=== PATIENT | female | born 1990 | race Caucasian/White ===

== ENCOUNTER 2019-02-28 14:11 | Inpatient (IN) ==
[2019-02-28 14:55] LABS: Basophils % 0.2 %; Hematocrit 38.8 % (35.3-44.9); Hemoglobin 12.6 g/dL (11.5-15.4); Immature Granulocytes % 0.4 % (0-4); Lymphocytes # 0.5 K/mcL (0.6-4.6); Lymphocytes % 4.7 %; Mean Corpuscular HGB Conc 32.5 g/dL (31.6-35.5); Mean Corpuscular Hemoglobin 30.3 pg (28.0-33.3); Mean Corpuscular Volume 93.3 fL (83.0-100.0); Mean Platelet Volume 9.3 fL (9.4-12.4); Monocytes # 0.3 K/mcL (0.0-1.3); Monocytes % 2.9 %; Neutrophils # 10.3 K/mcL (1.6-8.9); Platelet Count 198 K/mcL (140-400); Red Blood Count 4.16 M/mcL (3.82-4.97); Red Cell Distribution Width 12.8 % (11.5-14.5); Segmented Neutrophils % 91.8 %; White Blood Count 11.2 K/mcL (4.3-11.1)
[2019-02-28 15:02] LABS: INR 1.6; Prothrombin Time 18.2 Seconds (9.4-12.1)
[2019-02-28] MEDS ORDERED: *HR* FentaNYL (PF) 100 MCG/2 ML VIAL IVP ONE ×2 (15:08→17:19)
[2019-02-28] MEDS ORDERED: Ondansetron 4 MG/2 ML VIAL IM ONE (15:08)
[2019-02-28 15:20] LABS: BUN/Creatinine Ratio 22 (6-26); Blood Urea Nitrogen 12 mg/dL (6-20); Calcium 9.6 mg/dL (8.6-10.3); Carbon Dioxide 26 mEq/L (23-29); Chloride 104 mEq/L (98-107); Glucose 106 mg/dL (70-105); Osmolality,Calculated 286 (280-300); Potassium 3.5 mEq/L (3.5-5.1); Sodium 138 mEq/L (136-145); eGFR For African Americans > 60 (> 60); eGFR For Non-African Americans > 60 (> 60)
[2019-02-28 15:22] LABS: Troponin I < 0.03 ng/mL (< 0.04)
[2019-02-28] MEDS ORDERED: Isovue-370 500 ML BOTTLE IVP ONE (15:27)
--- NOTE | 2019-02-28 15:53 | Emergency Department Note ---
Disposition Clinical Impression: Abdominal pain Qualifiers: Abdominal location: generalized Qualified Code(s): R10.84 - Generalized abdominal pain Disposition: Admitted As Inpatient Time of Disposition: 19:00 General Adult HPI - General Chief complaint: ED Abdominal Pain Stated complaint: ABD PAIN Time Seen by Provider: 02/28/19 14:24 Source: patient, family Limitations: no limitations - History of Present Illness HPI Narrative: Ms. Moore is a 28-year-old female presented to ED complaining of diffuse abdominal pain. She reports this morning she started having bouts of nonbloody emesis. The abdominal pain is diffuse and not localized to any specific quadrants. Reports the pain does worsen anytime she sits down at any pressure while urinating. Also complaining of chest pain that worsens with deep inspiration. Denies any radiation of chest wall pain to her back or arms. Reports she has never had any pain like this before. She does report frequent travel to [place] with 3 hour trips reports is not unusual for her. Denies any previous history of pulmonary embolism. Denies tobacco use. Denies any current use of contraceptives. Denies fever, loss of consciousness, lower extremity edema or pain. Pain Scale: 10 - Related Data Previous Rx's Medication Instructions Recorded Doxycycline 100 mg PO BID #28 capsule 03/01/19 Ibuprofen [Motrin] 600 mg PO Q6HR PRN #40 tab 03/01/19 OxyCODONE/APAP 5/325 [Percocet 1 each PO Q6HR PRN 7 Days #28 03/01/19 5/325 MG] tablet metroNIDAZOLE [Flagyl] 500 mg PO BID #28 tablet 03/01/19 Allergies Allergy/AdvReac Type Severity Reaction Status Date / Time No Known Allergies Allergy Verified 02/28/19 14:17 Constitutional: Denies: fever, chills, weakness Eyes: Denies: eye pain, eye discharge ENT ED: Denies: ear pain, congestion, dysphagia Cardiovascular: Reports: chest pain. Denies: palpitations, dyspnea on exertion Respiratory: Denies: cough, dyspnea, wheezes Gastrointestinal: Reports: abdominal pain, nausea, vomiting Genitourinary: Denies: urgency, dysuria, frequency Musculoskeletal: Denies: back pain Integumentary: Denies: rash, abrasion, lesions Neurological: Denies: headache, weakness Past Medical History - Past Medical History Medical history: Reports: kidney stones Surgical history: Reports: no surgical history Psychiatric history: Reports: anxiety - Social History Smoking Status: Never smoker Smokeless Tobacco Status: No Alcohol use: Reports: none Drug use: Reports: none Physical Exam - General Limitations: no limitations General appearance: alert, in no apparent distress - Head Head exam: atraumatic, normocephalic - Eye Eye exam: Present: normal appearance, EOMI. Absent: scleral icterus - ENT ENT exam: normal exam, normal oropharynx, mucous membranes moist - Neck Neck exam: Present: normal inspection, full ROM, trachea midline - Chest Chest inspection: Present: normal inspection, symmetric chest wall rise. Absent: tenderness - Respiratory Respiratory exam: Present: normal lung sounds bilaterally. Absent: respiratory distress, wheezes - Cardiovascular Cardiovascular exam: Present: normal rhythm, tachycardia, +S1 - Abdominal Exam Abdominal exam: Present: soft, tenderness (Diffuse), guarding. Absent: distention, rigidity, Rovsing's sign - Extremities Exam Extremities exam: Present: normal inspection, full ROM. Absent: tenderness, pedal edema - Neurological Exam Neurological exam: Present: alert, oriented X3 - Psychiatric Psychiatric exam: Present: normal affect, normal mood - Skin Skin exam: Present: warm, dry, intact Course Vital Signs Temperature 99.8 F H 02/28/19 14:17 Pulse Rate 96 02/28/19 14:17 Respiratory Rate 20 02/28/19 14:17 Blood Pressure 109/73 02/28/19 14:17 O2 Sat by Pulse Oximetry 99 02/28/19 14:17 Temperature 98.7 F 02/28/19 22:16 Pulse Rate 85 02/28/19 22:16 Respiratory Rate 24 02/28/19 22:16 Blood Pressure 108/63 02/28/19 22:16 O2 Sat by Pulse Oximetry 96 02/28/19 22:16 Oxygen Delivery Oxygen Delivery Room Air Medical Decision Making - [facility] Narrative Medical decision making narrative: *Capo is a 28-year-old female presents ED complaining of nausea diffuse abdominal pain and pleuritic chest pain. She reports this symptom started today. She has had a few episodes of emesis since the presentation of the pain. She never had any pain with this before. She is denying any history of pulmonary embolism or DVTs. Her d-dimer was elevated at 2853 today. CTA pending. CTA did not show any acute pulmonary embolism. CT abdomen pelvis shows free fluid as well as engorgement of uterine vessels. Additionally there is large cystic lesion noted. Transvaginal ultrasound pending. Urine is negative. Consulted PUBLIC SPEAKING TEACHER spoke with nurse practitioner for PUBLIC SPEAKING TEACHER and they will admit her. - Medical Records Medical records reviewed: Yes I reviewed the patient's medical records. - Lab Data Lab results reviewed: Yes I reviewed the patient's lab results. Result diagrams: 03/01/19 07:02 02/28/19 14:44 Lab Results 02/28/19 02/28/19 02/28/19 Range/Units 14:44 14:44 14:44 WBC 11.2 H (4.3-11.1) K/mcL RBC 4.16 (3.82-4.97) M/mcL Hgb 12.6 (11.5-15.4) g/dL Hct 38.8 (35.3-44.9) % MCV 93.3 (83.0-100.0) fL MCH 30.3 (28.0-33.3) pg MCHC 32.5 (31.6-35.5) g/dL RDW 12.8 (11.5-14.5) % Plt Count 198 (140-400) K/mcL MPV 9.3 L (9.4-12.4) fL Immature Gran % 0.4 (0-4) % Seg Neutrophils % 91.8 % Lymphocytes % 4.7 % Monocytes % 2.9 % Eosinophils % 0.0 % Basophils % 0.2 % Neutrophils # 10.3 H (1.6-8.9) K/mcL Lymphocytes # 0.5 L (0.6-4.6) K/mcL Monocytes # 0.3 (0.0-1.3) K/mcL Eosinophils # 0.0 (0.0-0.6) K/mcL Basophils # 0.0 (0.0-0.2) K/mcL PT 18.2 H (9.4-12.1) Seconds INR 1.6 D-Dimer 2853 H (0-500) ng/mLFEU Sodium 138 (136-145) mEq/L Potassium 3.5 (3.5-5.1) mEq/L Chloride 104 (98-107) mEq/L Carbon Dioxide 26 (23-29) mEq/L BUN 12 (6-20) mg/dL Creatinine 0.55 L (0.60-1.20) mg/dL Est GFR ( Amer) > 60 (> 60) Est GFR (Non-Af Amer) > 60 (> 60) BUN/Creatinine Ratio 22 (6-26) Glucose 106 H (70-105) mg/dL Calculated Osmolality 286 (280-300) Calcium 9.6 (8.6-10.3) mg/dL Troponin I < 0.03 (< 0.04) ng/mL Urine Color (Yellow) Urine Clarity (Clear) Urine pH (5.0-8.0) pH Units Ur Specific [place] (1.010-1.025) Urine Protein (Neg-Trace) mg/dL Urine Glucose (UA) (Normal) mg/dL Urine Ketones (Negative) mg/dL Urine Blood (Negative) Urine Nitrite (Negative) Urine Bilirubin (Negative) Urine Urobilinogen (Normal) mg/dL Ur Leukocyte Esterase (Negative) Ur Culture Indicated? (NO) Urine Test (Negative) Blood Type Antibody Screen Crossmatch 02/28/19 02/28/19 02/28/19 Range/Units 17:01 17:01 17:56 WBC (4.3-11.1) K/mcL RBC (3.82-4.97) M/mcL Hgb (11.5-15.4) g/dL Hct (35.3-44.9) % MCV (83.0-100.0) fL MCH (28.0-33.3) pg MCHC (31.6-35.5) g/dL RDW (11.5-14.5) % Plt Count (140-400) K/mcL MPV (9.4-12.4) fL Immature Gran % (0-4) % Seg Neutrophils % % Lymphocytes % % Monocytes % % Eosinophils % % Basophils % % Neutrophils # (1.6-8.9) K/mcL Lymphocytes # (0.6-4.6) K/mcL Monocytes # (0.0-1.3) K/mcL Eosinophils # (0.0-0.6) K/mcL Basophils # (0.0-0.2) K/mcL PT (9.4-12.1) Seconds INR D-Dimer (0-500) ng/mLFEU Sodium (136-145) mEq/L Potassium (3.5-5.1) mEq/L Chloride (98-107) mEq/L Carbon Dioxide (23-29) mEq/L BUN (6-20) mg/dL Creatinine (0.60-1.20) mg/dL Est GFR ( Amer) (> 60) Est GFR (Non-Af Amer) (> 60) BUN/Creatinine Ratio (6-26) Glucose (70-105) mg/dL Calculated Osmolality (280-300) Calcium (8.6-10.3) mg/dL Troponin I (< 0.04) ng/mL Urine Color Yellow (Yellow) Urine Clarity Clear (Clear) Urine pH 6.0 (5.0-8.0) pH Units Ur Specific [place] >= 1.099 H (1.010-1.025) Urine Protein Negative (Neg-Trace) mg/dL Urine Glucose (UA) Normal (Normal) mg/dL Urine Ketones Trace H (Negative) mg/dL Urine Blood Negative (Negative) Urine Nitrite Negative (Negative) Urine Bilirubin Negative (Negative) Urine Urobilinogen Normal (Normal) mg/dL Ur Leukocyte Esterase Negative (Negative) Ur Culture Indicated? NO (NO) Urine Test Negative (Negative) Blood Type O POSITIVE Antibody Screen NEGATIVE Crossmatch See Detail 02/28/19 Range/Units 17:56 WBC 10.0 (4.3-11.1) K/mcL RBC 3.88 (3.82-4.97) M/mcL Hgb 11.7 (11.5-15.4) g/dL Hct 36.4 (35.3-44.9) % MCV 93.8 (83.0-100.0) fL MCH 30.2 (28.0-33.3) pg MCHC 32.1 (31.6-35.5) g/dL RDW 13.0 (11.5-14.5) % Plt Count 179 (140-400) K/mcL MPV 10.1 (9.4-12.4) fL Immature Gran % 0.5 (0-4) % Seg Neutrophils % 90.1 % Lymphocytes % 5.6 % Monocytes % 3.6 % Eosinophils % 0.0 % Basophils % 0.2 % Neutrophils # 9.0 H (1.6-8.9) K/mcL Lymphocytes # 0.6 (0.6-4.6) K/mcL Monocytes # 0.4 (0.0-1.3) K/mcL Eosinophils # 0.0 (0.0-0.6) K/mcL Basophils # 0.0 (0.0-0.2) K/mcL PT (9.4-12.1) Seconds INR D-Dimer (0-500) ng/mLFEU Sodium (136-145) mEq/L Potassium (3.5-5.1) mEq/L Chloride (98-107) mEq/L Carbon Dioxide (23-29) mEq/L BUN (6-20) mg/dL Creatinine (0.60-1.20) mg/dL Est GFR ( Amer) (> 60) Est GFR (Non-Af Amer) (> 60) BUN/Creatinine Ratio (6-26) Glucose (70-105) mg/dL Calculated Osmolality (280-300) Calcium (8.6-10.3) mg/dL Troponin I (< 0.04) ng/mL Urine Color (Yellow) Urine Clarity (Clear) Urine pH (5.0-8.0) pH Units Ur Specific [place] (1.010-1.025) Urine Protein (Neg-Trace) mg/dL Urine Glucose (UA) (Normal) mg/dL Urine Ketones (Negative) mg/dL Urine Blood (Negative) Urine Nitrite (Negative) Urine Bilirubin (Negative) Urine Urobilinogen (Normal) mg/dL Ur Leukocyte Esterase (Negative) Ur Culture Indicated? (NO) Urine Test (Negative) Blood Type Antibody Screen Crossmatch - Radiology Data Radiology results reviewed: Yes I reviewed the patient's radiology results. Attestation Statement - Attestation Attestation: I, Reyes Salazar, examined this patient and my medical decision-making was reviewed with the NATURAL RESOURCE OFFICER/PA/Advanced Practice Nurse/Resident Physician. I agree with the documented findings, disposition and treatment plan as described except to the extent set forth below. 28-year-old female presents emergency Department with concerns of severe abdominal pain. Patient states symptoms started acutely and progressed over the past few hours prior to arrival. Patient reports associated nausea with the pain. She does have a fever in the emergency department. She denies chest pain or shortness breath or palpitations. No recent trauma. She reports vaginal bleeding believes that she is on her menstrual cycle. Urine was negative. CT of the pelvis shows large amount of free fluid within the pelvis which is likely blood. We called the PUBLIC SPEAKING TEACHER physician to evaluate at bedside. Dr. Lopez evaluated and will take the patient to the OR.
[2019-02-28] MEDS ORDERED: 0.9 % Sodium Chloride 1,000 ML IVC ONE (17:19)
[2019-02-28] MEDS ORDERED: Acetaminophen 325 MG TABLET PO ONE (17:40)
[2019-02-28 17:44] LABS: Bilirubin,Urine Negative (Negative); Blood,Urine Negative (Negative); Clarity,Urine Clear (Clear); Color,Urine Yellow (Yellow); Glucose,Urine (UA) Normal (Normal); Ketones,Urine Trace mg/dL (Negative); Leukocyte Esterase,Urine Negative (Negative); Nitrite,Urine Negative (Negative); Protein,Urine Negative (Neg-Trace); Urobilinogen,Urine Normal (Normal)
[2019-02-28 17:45] LABS: Specific Gravity,Urine >= 1.099 (1.010-1.025)
[2019-02-28 18:29] LABS: Basophils % 0.2 %; Hematocrit 36.4 % (35.3-44.9); Hemoglobin 11.7 g/dL (11.5-15.4); Immature Granulocytes % 0.5 % (0-4); Lymphocytes # 0.6 K/mcL (0.6-4.6); Lymphocytes % 5.6 %; Mean Corpuscular HGB Conc 32.1 g/dL (31.6-35.5); Mean Corpuscular Hemoglobin 30.2 pg (28.0-33.3); Mean Corpuscular Volume 93.8 fL (83.0-100.0); Mean Platelet Volume 10.1 fL (9.4-12.4); Monocytes # 0.4 K/mcL (0.0-1.3); Monocytes % 3.6 %; Platelet Count 179 K/mcL (140-400); Red Blood Count 3.88 M/mcL (3.82-4.97); Segmented Neutrophils % 90.1 %
[2019-02-28] MEDS ORDERED: Doxycycline 100 MG in 0.9 % Sodium Chloride Mini Bag 100 ML IVPB ONE (19:06)
[2019-02-28] MEDS ORDERED: cefTRIAXone 1,000 MG in 0.9 % Sodium Chloride Mini Bag 100 ML IVPB ONE (19:06)
[2019-02-28] MEDS ORDERED: MetroNIDAZOLE 500 MG/100 ML 500 MG/100 ML BAG IVPB ONE ×2 (19:07→20:11)
--- NOTE | 2019-02-28 19:11 | OB/GYN History & Physical ---
Date of Encounter: 02/28/19 Time of Encounter: 19:08 Assessment and Plan (1) Pelvic pain Current visit: Yes Status: Acute 28-year-old female with severe pelvic pain and acute abdominal signs with hematocrit peritoneum was normal hemoglobin at this point however she has been hypertensive and somewhat tachycardic. She has definite peritoneal signs with exquisite tenderness. She does have a large complex right ovarian cyst and hematocrit peritoneum and does have a history of a large complex cyst back in 2016 on the same side. She is low risk for infection and that she does have a mild elevation of fever minimal elevation in white count I think infection with tubo-ovarian abscesses unlikely at this point. Did advise patient that given her pain and hematocrit peritoneum options for either expectant management versus surgical and patient states quite uncomfortable and desires to proceed with surgery. I did advise patient that if I was highly concerned over tubo- ovarian abscess it would possibly be best to hold down infection with antibioti cs for 48-72 hours prior to surgery. Patient strongly desires to proceed with surgery now on I did advise given the concern over tubo-ovarian abscess will proceed with surgery. Patient's questions were answered and she signed appropriate consent. We will proceed with laparoscopic right ovarian cystectomy possible oophorectomy (2) Complex cyst of right ovary Current visit: Yes Status: Acute (3) Hemoperitoneum (nontraumatic) Current visit: Yes Status: Acute History of Present Illness Chief complaint: Severe pelvic and abdominal pain HPI: Ms. Moore is a 28 year old female 2 para 2 female last menstrual period 3 days Presents after onset of right lower quadrant pelvic pain yesterday and became quite severe this morning. The pain was doubling her over also was now having pain and pressure and chest she has nausea and no emesis. She denies abnormal discharge. She denies bowel or bladder problems she has no fevers or chills. Of note she does have a history of hemorrhoids 5 cm right ovarian cyst noted on ultrasound 2016. She has had occasional dyspareunia on the right side since then but has not had further evaluation or workup. She is in a stable monogamous relationship and has no history of sexually transmitted infections. She has history of 2 prior sections. An emergency room patient did have CAT scan showing 7.6 cm right ovarian cyst with significant amount of blood in abdominal cavity tracking up underneath her liver. The cyst on the right side is somewhat complex. She also has mildly enlarged spleen but no other significant findings. She did have a negative CTA to rule out pulmonary embolism given her chest discomfort. Did have one elevation in temperature and also had minimally elevated white count 11.6. Past Med Surg Social Fam HX - Past Medical History Source: patient Medical history: kidney stones Additional medical history: PCOS Psychiatric history: anxiety - Past Surgical History Surgical History: no surgical history Additional surgical history: Kidney stones removed - Social History Smoking Status: Never smoker Smokeless Tobacco Status: No Alcohol use: none Drug use: none Obstetrical History - Pregnancies : 2 Para: 2 Medications and Allergies No Known Home Drugs 02/28/19 [History] Allergy/AdvReac Type Severity Reaction Status Date / Time No Known Allergies Allergy Verified 02/28/19 14:17 Exam - Vital Signs Vital signs: Initial Vital Signs Temp Pulse Resp BP Pulse Ox 99.8 F H 96 20 109/73 99 02/28/19 14:17 02/28/19 14:17 02/28/19 14:17 02/28/19 14:17 02/28/19 14:17 - Constitutional Constitutional: well developed, moderate distress - HEENT HEENT: EOMI, PERRL - Neck Neck exam: full ROM - Lungs Respiratory exam: CTAB - Cardiovascular Cardiovascular exam: RRR - Abdomen Abdomen: Present: bowel sounds hypoactive, diffuse tenderness - Extremities Extremities exam: full ROM Results Result Diagrams: 02/28/19 17:56 02/28/19 14:44 Abnormal lab results WBC 11.2 K/mcL (4.3-11.1) H 02/28/19 14:44 MPV 9.3 fL (9.4-12.4) L 02/28/19 14:44 9.0 K/mcL (1.6-8.9) H 02/28/19 17:56 0.5 K/mcL (0.6-4.6) L 02/28/19 14:44 PT 18.2 Seconds (9.4-12.1) H 02/28/19 14:44 2853 ng/mLFEU (0-500) H 02/28/19 14:44 0.55 mg/dL (0.60-1.20) L 02/28/19 14:44 Glucose 106 mg/dL (70-105) H 02/28/19 14:44 Ur Specific [place] >= 1.099 (1.010-1.025) H 02/28/19 17:01 Trace mg/dL (Negative) H 02/28/19 17:01 All other labs normal.
--- NOTE | 2019-02-28 19:37 | Anesthesia Evaluation PreOp ---
Date of Encounter: 02/28/19 Time of Encounter: 19:35 - Past History Planned Operation: Right Laproscopic Ovarian Cystectomy Cardiac History: Denies any Significant Hx Pulmonary History: Denies Any Significant HX BOAT WORKER History: Other Other Medical History: Denies Any Significant HX, Other (PCOS, anxiety) Anesthesia History: Past Anesthesia (renal stone, C/S) : No Test: Negative (02/28/19) Alcohol Use: none Drug use: none Medications and Allergies No Known Home Drugs 02/28/19 [History] Allergy/AdvReac Type Severity Reaction Status Date / Time No Known Allergies Allergy Verified 02/28/19 14:17 - Meds/Allergy Pre-op Review Medications Reviewed: Yes Allergies Reviewed: Yes Beta Blockers on Current Med List: No Anesthesia Results - Labs 02/28/19 17:56 02/28/19 14:44 Anesthesia Exam Vital Signs/O2 Sat, Most Current Temp Pulse Resp BP Pulse Ox 101.0 F H 107 16 113/61 96 02/28/19 18:30 02/28/19 18:30 02/28/19 18:30 02/28/19 18:30 02/28/19 18:30 NPO (# of Hours): > 8 hrs Pain Scale: 0 Pain Scale Used: Numeric (1 - 10) - HEENT Pupil (Motor): Pupils equal, EOMI Mallampati: I Teeth: Normal Oral Opening: Greater than 3 - BOAT WORKER LOC: Oriented BOAT WORKER Motor: Normal RUE, Normal LUE, Normal RLE, Normal LLE, Normal Face BOAT WORKER Sensory: Normal: RUE, LUE, RLE, LLE, Face - Cardiac Rhythm: Regular Murmur: None JVD: No Carotid Bruit: No - Pulmonary Breath Sounds: bilateral Clear Respiratory Effort: Symmetrical Anesthesia Assess/Plan ASA Score: 1, E Level of consciousness: Cooperative Anesthetic Plan: General Autologous Blood: Yes Monitoring Plan: Standard Monitors Recovery Plan: PACU
[2019-02-28] MEDS ORDERED: *HR* FentaNYL (PF) 100 MCG/2 ML VIAL ONE (19:43)
[2019-02-28] MEDS ORDERED: *HR* Propofol 200 MG/20 ML VIAL IVP ONE (19:43)
[2019-02-28] MEDS ORDERED: Lidocaine -MPF 2% 2 ML VIAL ONE (19:45)
[2019-02-28] MEDS ORDERED: Dexamethasone 4 MG/ML VIAL ONE (19:45)
[2019-02-28] MEDS ORDERED: Ondansetron 4 MG/2 ML VIAL ONE (19:45)
[2019-02-28] MEDS ORDERED: *HR* Rocuronium Bromide 50 MG/5 ML VIAL ONE (19:45)
[2019-02-28] MEDS ORDERED: *HR* Succinylcholine 200 MG/10 ML VIAL IVP ONE (19:45)
[2019-02-28] MEDS ORDERED: *HR* Labetalol 20 MG/4 ML SYRINGE IVP PRN (20:03)
[2019-02-28] MEDS ORDERED: Ondansetron 4 MG/2 ML VIAL IVP ONE (20:03)
[2019-02-28] MEDS ORDERED: *HR* OxyCODONE Immed Rel 5 MG TABLET PO PRN (20:03)
[2019-02-28] MEDS ORDERED: *HR* Promethazine 25 MG/ML VIAL IVP PRN (20:03)
[2019-02-28] MEDS ORDERED: *HR* HYDROmorphone (PF) 1 MG/ML SYRINGE IVP PRN (20:03)
[2019-02-28] MEDS ORDERED: Bupivacaine/EPI 1:200k 0.25%PF 10 ML VIAL INFILT ONE (20:11)
[2019-02-28] MEDS ORDERED: Neostigmine Methylsulfate 3 MG/3 ML SYRINGE ONE (21:31)
[2019-02-28] MEDS ORDERED: Ketorolac 30 MG/ML VIAL ONE (21:53)
--- NOTE | 2019-02-28 22:11 | Anesthesia Evaluation Post Op ---
Date of Encounter: 02/28/19 Time of Encounter: 22:10 - Vital Signs Vital Signs: Vital Signs/O2 Sat, Most Current Temp Pulse Resp BP Pulse Ox 98.4 F 80 24 108/58 94 02/28/19 21:46 02/28/19 22:06 02/28/19 22:06 02/28/19 22:06 02/28/19 22:06 - Lungs Lungs: Clear Ascult./Percussion - Airway Airway: Non-obstructed - Cardiovascular Regular Rate - Mental Status Mental Status: Alert & Oriented, Answers Appropriately - Pain Pain Scale: 0 Pain Scale used: Numeric (1 - 10) - Nausea Vomiting Nausea Vomiting: Not Present - Hydration Hydration: Ice chips, Has not voided - Discharge PostOp Status: Transfer Patient to floor
[2019-02-28] MEDS ORDERED: Naloxone 0.4 MG/ML INJ IVP PRN (22:14)
[2019-02-28] MEDS ORDERED: Ondansetron 4 MG/2 ML VIAL IVP PRN ×2 (22:14→22:54)
--- NOTE | 2019-02-28 22:15 | OB/GYN Procedure Note ---
Laparoscopy Procedure - Diagnosis Date of procedure: 02/28/19 Pre-op diagnosis: acute pelvic pain, ovarian cyst (7.4 cm complex right ovarian cyst), other (Possible tubo-ovarian abscess) Post-op diagnosis: same, pelvic adhesive disease, other (7 cm smooth-walled ovarian cyst, tubo-ovarian abscess) - Procedure Laparoscopy procedure: right ovarian cystectomy, lysis of pelvic adhesions Surgeon: Jerrod Martinez Was there an clinic assistant present: Yes General Assistant: Zaria Ball Anesthesia Type: General Estimated blood loss (cc): 320 Complications: none Specimens: ovarian cyst wall Findings: Laboratory changes within the pelvis with multiple adhesions between the omentum and the right lower quadrant and left lower quadrant. 7 cm smooth-walled right ovarian cyst with localized inflammation Disposition: PACU Narrative: 28-year-old female presents to emergency room with severe pelvic pain, 7 cm right ovarian cyst, hematoperitoneum peritoneum, fever. Patient with long history of 7 cm right ovarian cyst. Discussed with patient options as per history of present illness decision was made to proceed with laparoscopic right ovarian cystectomy possible oophorectomy. She was aware of operative risks and signed appropriate consent. Description procedure: Patient was taken operating room where general anesthesia was administered. She is prepped draped in usual sterile fashion bladder was drained of clear urine. Cervix is visualized and grasped with single-tooth tenaculum and acorn uterine manipulators placed in the cervix. Scalpel was used to make 5 mm incision below the umbilicus from a blunt trochars introduced at difficulty. 12 mm trochar was placed the midline just above symphysis pubis. Patient was placed in Trendelenburg position. Second 5 mm trochars placed in the right lower quadrant. Multiple adhesions were noted between the omentum and anterior abdominal wall these were thin stringy were taken down easily. She was between the bowel in the right ovary which was enlarged and cystic these adhesions were easily taken down. There are also adhesions from left adnexal intra-abdominal wall which easily taken down. Right ovary was lifted upwards out of the pelvis was then smooth-walled enlarged. This ovarian cyst was opened and drained of clear fluid. LigaSure was used to go across the cyst wall and the cyst was completely transected and the cyst was removed from the normal right ovary. There were adhesions between the right fallopian tube and right ovary. At this point thorough irrigation was performed approximately thousand cc of fluid and all the inflammatory debris which is on the uterus as well as both fallopian tubes and throughout the pelvis was irrigated out the best of my ability. Hemostasis was ensured. Pneumoperitoneum was released and trochars removed. 12 mm incision was closed with 0 Vicryl. Skin edges reapproximated with 4-0 Vicryl and skin glue. All sponge and instruments counts are correct patient was taken recovery in good condition.
[2019-02-28] MEDS: cefOXitin 2,000 MG in Water for inj. (sterile) 20 ML 20 ML IVP SCH (22:52)
[2019-02-28] MEDS ORDERED: *HR* Meperidine 25 MG/ML SYRINGE IVP PRN (22:55)
[2019-02-28] MEDS ORDERED: Promethazine 12.5 MG in 0.9 % Sodium Chloride 50 ML IVPB PRN (22:59)
[2019-03-01] MEDS: *HR* OxyCODONE/APAP 5/325 TABLET PO PRN ×4 (01:37→19:16)
[2019-03-01] MEDS: Ringers Solution, Lactated 1,000 ML IVC SCH ×3 (03:45→21:21)
[2019-03-01] MEDS: Doxycycline 100 MG in 0.9 % Sodium Chloride Mini Bag 100 ML IVPB SCH ×2 (05:24→17:51)
[2019-03-01] MEDS ORDERED: Ondansetron 4 MG/2 ML VIAL IVP PRN (06:00)
[2019-03-01 07:38] LABS: Basophils % 0.1 %; Hematocrit 32.6 % (35.3-44.9); Hemoglobin 10.6 g/dL (11.5-15.4); Immature Granulocytes % 0.5 % (0-4); Lymphocytes # 0.2 K/mcL (0.6-4.6); Lymphocytes % 2.2 %; Mean Corpuscular HGB Conc 32.5 g/dL (31.6-35.5); Mean Corpuscular Hemoglobin 30.2 pg (28.0-33.3); Mean Corpuscular Volume 92.9 fL (83.0-100.0); Mean Platelet Volume 9.8 fL (9.4-12.4); Monocytes # 0.3 K/mcL (0.0-1.3); Monocytes % 3.1 %; Neutrophils # 9.4 K/mcL (1.6-8.9); Platelet Count 168 K/mcL (140-400); Red Blood Count 3.51 M/mcL (3.82-4.97); Red Cell Distribution Width 12.9 % (11.5-14.5); Segmented Neutrophils % 94.1 %
--- NOTE | 2019-03-01 08:12 | OB/GYN Progress Note ---
Date of Encounter: 03/01/19 Time of Encounter: 08:10 - Assessment and Plan (1) Pelvic pain Current Visit: Yes Status: Acute 28-year-old female with severe pelvic pain and acute abdominal signs with hematocrit peritoneum was normal hemoglobin at this point however she has been hypertensive and somewhat tachycardic. She has definite peritoneal signs with exquisite tenderness. She does have a large complex right ovarian cyst and hematocrit peritoneum and does have a history of a large complex cyst back in 2016 on the same side. She is low risk for infection and that she does have a mild elevation of fever minimal elevation in white count I think infection with tubo-ovarian abscesses unlikely at this point. Did advise patient that given her pain and hematocrit peritoneum options for either expectant management versus surgical and patient states quite uncomfortable and desires to proceed with surgery. I did advise patient that if I was highly concerned over tubo- ovarian abscess it would possibly be best to hold down infection with antibiot ics for 48-72 hours prior to surgery. Patient strongly desires to proceed with surgery now on I did advise given the concern over tubo-ovarian abscess will proceed with surgery. Patient's questions were answered and she signed appropriate consent. We will proceed with laparoscopic right ovarian cystectomy possible oophorectomy 03/01/19- Pt doing well POD # 1, now afebrile x 14 hours. She still has significant abdominal pain but it is improving and controlled with Percocet and Motrin. D/W pt possible d/c home when afebrile for 24-48 hours with improving pain per up to date guidelines. (2) Complex cyst of right ovary Current Visit: Yes Status: Acute (3) Hemoperitoneum (nontraumatic) Current Visit: Yes Status: Acute Subjective - Subjective Principal diagnosis: TOA, s/p l/s right ovarian cystectomy and evacuation of clot and pus Interval history: Doing better, still with abdominal pain, but feeling better but no radiation to chest and back. Regular diet without n/v. No fever since 18:30 last pm when it was 101 Patient reports: appetite normal Objective - Vital Signs Latest vital signs: Vital Signs Temp Pulse Resp BP Pulse Ox 03/01/19 01:35 98.5 F 87 14 95/56 95 02/28/19 23:35 98.4 F 82 14 96/58 96 02/28/19 23:05 98.5 F 75 14 98/58 97 02/28/19 22:30 98.6 F 80 14 100/64 97 02/28/19 22:16 98.7 F 85 24 108/63 96 02/28/19 22:06 80 24 108/58 94 02/28/19 21:56 79 20 109/65 96 02/28/19 21:46 98.4 F 80 16 106/64 95 02/28/19 19:36 101 16 110/69 97 02/28/19 18:30 101.0 F H 107 16 113/61 96 02/28/19 18:04 103 16 113/61 99 02/28/19 17:13 102.4 F H 101 16 96/65 02/28/19 16:12 96 18 115/50 97 02/28/19 14:36 131 18 102/71 02/28/19 14:29 99.8 F H 96 20 109/73 99 02/28/19 14:17 99.8 F H 96 20 109/73 99 Intake and Output 02/28/19 03/01/19 03/01/19 23:59 07:59 15:59 Intake Total 1120 / 1120 Output Total 230 / 230 700 / 700 Balance 890 / 890 -700 / -700 Intake: IV Fluids 1120 / 1120 0.9 % Sodium Chloride 1,000 ML 1000 / 1000 @ 9999 mls/hr IVC .Q6M ONE Rx#: [id number] Mefoxin 2,000 MG In Water for inj. (sterile) 20 ML @ 300 mls/ hr IVP Q6H [facility] Rx#:[id number] Rocephin 1,000 MG In 0.9 % 100 / 100 Sodium Chloride (Mini-Bag +) 100 ML @ 200 mls/hr IVPB ONCE ONE Rx#:[id number] Output: Urine 700 / 700 Estimated Blood Loss 230 / 230 - I&O's I&O's: Intake & Output 02/26/19 02/27/19 02/28/19 03/01/19 23:59 23:59 23:59 23:59 Intake Total 1120 / 1120 Output Total 230 / 230 700 / 700 Balance 890 / 890 -700 / -700 Weight 79.832 kg - Exam Lungs: bilateral: normal Chest: Normal S1, Normal S2 Extremities: Present: normal Abdomen: Present: soft, tenderness (appropriate incisional tenderness) Incision OB: Present: normal, dry, intact - Labs Labs: Abnormal lab results WBC 11.2 K/mcL (4.3-11.1) H 02/28/19 14:44 RBC 3.51 M/mcL (3.82-4.97) L 03/01/19 07:02 Hgb 10.6 g/dL (11.5-15.4) L 03/01/19 07:02 Hct 32.6 % (35.3-44.9) L 03/01/19 07:02 MPV 9.3 fL (9.4-12.4) L 02/28/19 14:44 9.4 K/mcL (1.6-8.9) H 03/01/19 07:02 0.2 K/mcL (0.6-4.6) L 03/01/19 07:02 PT 18.2 Seconds (9.4-12.1) H 02/28/19 14:44 2853 ng/mLFEU (0-500) H 02/28/19 14:44 0.55 mg/dL (0.60-1.20) L 02/28/19 14:44 Glucose 106 mg/dL (70-105) H 02/28/19 14:44 Ur Specific [place] >= 1.099 (1.010-1.025) H 02/28/19 17:01 Trace mg/dL (Negative) H 02/28/19 17:01 Crossmatch See Detail 02/28/19 17:56 Consult Discharge Plan - Plan Referrals: NONE,PCP [Non-Partnered Physician] -
--- NOTE | 2019-03-01 08:27 | Discharge Summary ---
Outpatient Proc Discharge Plan - Plan Prescriptions: Ibuprofen [Motrin] 600 mg PO Q6HR PRN #40 tab PRN Reason: post op pain OxyCODONE/APAP 5/325 [Percocet 5/325 MG] 1 each PO Q6HR PRN 7 Days #28 tablet PRN Reason: Severe Pain (7-10) Home Medications: Ibuprofen [Motrin] 600 mg PO Q6HR PRN #40 tab 03/01/19 [Rx] OxyCODONE/APAP 5/325 [Percocet 5/325 MG] 1 each PO Q6HR PRN 7 Days #28 tablet 03/01/19 [Rx]
--- NOTE | 2019-03-01 08:30 | Discharge Summary ---
Outpatient Proc Discharge Plan - Plan Prescriptions: Doxycycline 100 mg PO BID #28 capsule metroNIDAZOLE [Flagyl] 500 mg PO BID #28 tablet Ibuprofen [Motrin] 600 mg PO Q6HR PRN #40 tab PRN Reason: post op pain OxyCODONE/APAP 5/325 [Percocet 5/325 MG] 1 each PO Q6HR PRN 7 Days #28 tablet PRN Reason: Severe Pain (7-10) Home Medications: Doxycycline 100 mg PO BID #28 capsule 03/01/19 [Rx] Ibuprofen [Motrin] 600 mg PO Q6HR PRN #40 tab 03/01/19 [Rx] OxyCODONE/APAP 5/325 [Percocet 5/325 MG] 1 each PO Q6HR PRN 7 Days #28 tablet 03/01/19 [Rx] metroNIDAZOLE [Flagyl] 500 mg PO BID #28 tablet 03/01/19 [Rx]
[2019-03-01] MEDS ORDERED: Ibuprofen 600 MG TABLET PO PRN (08:31)
[2019-03-01] MEDS: cefOXitin 2,000 MG in Water for inj. (sterile) 20 ML 20 ML IVP SCH ×3 (09:10→21:19)
[2019-03-01] MEDS: Famotidine 20 MG TABLET PO SCH (17:51)
[2019-03-02] MEDS: Famotidine 20 MG TABLET PO SCH (03:22)
[2019-03-02] MEDS: Doxycycline 100 MG in 0.9 % Sodium Chloride Mini Bag 100 ML IVPB SCH (06:25)
--- NOTE | 2019-03-02 07:50 | Discharge Summary ---
Date of Encounter: 03/02/19 Time of Encounter: 07:51 - Discharge Diagnosis (1) Pelvic pain Priority: Primary Status: Acute (2) Complex cyst of right ovary Priority: Primary Status: Acute Comments: Pt with right sided TOA s/p resection and now AF x over 24 hours on IV ATB's, will d/c home on doxy and flagyl. Pt to call for fevers or worsning pain. (3) Hemoperitoneum (nontraumatic) Priority: Secondary Status: Acute - Discharge Medications Prescriptions: New Ibuprofen [Motrin] 600 mg PO Q6HR PRN #40 tab PRN Reason: post op pain OxyCODONE/APAP 5/325 [Percocet 5/325 MG] 1 each PO Q6HR PRN 7 Days #28 tablet PRN Reason: Severe Pain (7-10) Doxycycline 100 mg PO BID #28 capsule metroNIDAZOLE [Flagyl] 500 mg PO BID #28 tablet Home Medications: Doxycycline 100 mg PO BID #28 capsule 03/01/19 [Rx] Ibuprofen [Motrin] 600 mg PO Q6HR PRN #40 tab 03/01/19 [Rx] OxyCODONE/APAP 5/325 [Percocet 5/325 MG] 1 each PO Q6HR PRN 7 Days #28 tablet 03/01/19 [Rx] metroNIDAZOLE [Flagyl] 500 mg PO BID #28 tablet 03/01/19 [Rx] Allergies/Adverse Reactions: Allergy/AdvReac Type Severity Reaction Status Date / Time No Known Allergies Allergy Verified 02/28/19 14:17 Data Procedures and tests throughout hospitalization: Laboratory Tests 02/28/19 02/28/19 02/28/19 14:44 14:44 14:44 WBC 11.2 H RBC 4.16 Hgb 12.6 Hct 38.8 MCV 93.3 MCH 30.3 MCHC 32.5 RDW 12.8 Plt Count 198 MPV 9.3 L Immature Gran % 0.4 Seg Neutrophils % 91.8 Lymphocytes % 4.7 Monocytes % 2.9 Eosinophils % 0.0 Basophils % 0.2 Neutrophils # 10.3 H Lymphocytes # 0.5 L Monocytes # 0.3 Eosinophils # 0.0 Basophils # 0.0 PT 18.2 H INR 1.6 D-Dimer 2853 H Sodium 138 Potassium 3.5 Chloride 104 Carbon Dioxide 26 BUN 12 Creatinine 0.55 L Est GFR ( Amer) > 60 Est GFR (Non-Af Amer) > 60 BUN/Creatinine Ratio 22 Glucose 106 H Calculated Osmolality 286 Calcium 9.6 Troponin I < 0.03 Urine Color Urine Clarity Urine pH Ur Specific [place] Urine Protein Urine Glucose (UA) Urine Ketones Urine Blood Urine Nitrite Urine Bilirubin Urine Urobilinogen Ur Leukocyte Esterase Ur Culture Indicated? Urine Test Blood Type Antibody Screen Crossmatch 02/28/19 02/28/19 02/28/19 17:01 17:01 17:56 WBC RBC Hgb Hct MCV MCH MCHC RDW Plt Count MPV Immature Gran % Seg Neutrophils % Lymphocytes % Monocytes % Eosinophils % Basophils % Neutrophils # Lymphocytes # Monocytes # Eosinophils # Basophils # PT INR D-Dimer Sodium Potassium Chloride Carbon Dioxide BUN Creatinine Est GFR ( Amer) Est GFR (Non-Af Amer) BUN/Creatinine Ratio Glucose Calculated Osmolality Calcium Troponin I Urine Color Yellow Urine Clarity Clear Urine pH 6.0 Ur Specific [place] >= 1.099 H Urine Protein Negative Urine Glucose (UA) Normal Urine Ketones Trace H Urine Blood Negative Urine Nitrite Negative Urine Bilirubin Negative Urine Urobilinogen Normal Ur Leukocyte Esterase Negative Ur Culture Indicated? NO Urine Test Negative Blood Type O POSITIVE Antibody Screen NEGATIVE Crossmatch See Detail 02/28/19 03/01/19 17:56 07:02 WBC 10.0 10.0 RBC 3.88 3.51 L Hgb 11.7 10.6 L Hct 36.4 32.6 L MCV 93.8 92.9 MCH 30.2 30.2 MCHC 32.1 32.5 RDW 13.0 12.9 Plt Count 179 168 MPV 10.1 9.8 Immature Gran % 0.5 0.5 Seg Neutrophils % 90.1 94.1 Lymphocytes % 5.6 2.2 Monocytes % 3.6 3.1 Eosinophils % 0.0 0.0 Basophils % 0.2 0.1 Neutrophils # 9.0 H 9.4 H Lymphocytes # 0.6 0.2 L Monocytes # 0.4 0.3 Eosinophils # 0.0 0.0 Basophils # 0.0 0.0 PT INR D-Dimer Sodium Potassium Chloride Carbon Dioxide BUN Creatinine Est GFR ( Amer) Est GFR (Non-Af Amer) BUN/Creatinine Ratio Glucose Calculated Osmolality Calcium Troponin I Urine Color Urine Clarity Urine pH Ur Specific [place] Urine Protein Urine Glucose (UA) Urine Ketones Urine Blood Urine Nitrite Urine Bilirubin Urine Urobilinogen Ur Leukocyte Esterase Ur Culture Indicated? Urine Test Blood Type Antibody Screen Crossmatch - Impressions ITS Impressions Chest CTA 02/28/19 15:27 IMPRESSION: No PE identified. Trace bilateral pleural effusions and mild perihepatic ascites. D/ / Jos Ojeda MD / Jos Ojeda MD Interpreting Provider: Jos Ojeda MD Abdomen/Pelvis CT 02/28/19 15:28 IMPRESSION: There is a moderate to large amount of heterogeneously hyperdense material seen within the pelvis, which extends into the upper abdomen, including the perihepatic space. The findings are most compatible with blood products, and likely represent the sequela of a ruptured hemorrhagic cyst. Given the amount of blood products, close monitoring of the patient's hemodynamic status is recommended. There is fluid-filled dilation of small bowel in the mid to left upper abdomen, without a definite zone of transition. Reactive ileus is considered most likely, but again close evaluation is recommended. If the patient's symptoms worsen, consider further evaluation with a repeat examination with oral contrast to better evaluate bowel motility. There is engorgement of the parauterine venous plexus, especially the left, presumably reactive. Pelvic congestion syndrome is also possible. This is a new finding when compared to the previous examination from 11/10/2017. Redemonstration of a large cystic lesion within the right adnexal space measuring up to 7.6 cm. This has been present since 2016, but is becoming progressively larger with time. Gynecologic consultation is recommended. Histopathologic correlation should be considered. Uncomplicated cholelithiasis. Nonobstructing bilateral nephrolithiasis. D/ / Jefferson Price MD / Jefferson Price MD Interpreting Provider: Jefferson Price MD 03/02/19 07:49- Doing well, reg diet without difficulty. Fair pain control. Desires d/c home. Date of admission: 02/28/19 19:18 Primary care physician: Bradley D Renate, DO - Patient Status Disposition: Home, Self-Care Condition: Good Functional capacity at discharge: independent ambulation Overall status at discharge: patient is progressing back to baseline - Discharge Instructions Follow Up With: Jerrod Martinez MD [Partnered Physician] - - Diet and Activity Activity: increase activity as tolerated Diet: advance to your usual diet Hospital Course [employer] Time Attestation: Total time spent providing and/or coordinating discharge services: Exam - Constitutional Vitals: Temp Pulse Resp BP Pulse Ox 98.1 F 87 15 113/72 94 03/02/19 03:31 03/02/19 03:31 03/02/19 03:31 03/02/19 03:31 03/02/19 03:31 General appearance IM: A&O X 3 - Respiratory Respiratory exam: Present: CTAB - Cardiovascular Cardiovascular exam IM: Present: RRR - GI/Abdominal GI/Abdominal exam IM: normal bowel sounds Incision: normal, intact - Extremities Exam Extremities exam IM: Present: full ROM - VTE Documentation of Mechanical Device: Intermittent pneumatic compression device
[2019-03-02 08:21] VITALS: BP 112/73
--- NOTE | 2019-03-04 12:03 | Electrocardiograph Report ---
[facility] Test Date: 2019-02-28 Pat Name: Tania Moore Department: [id number] Room: 1N9 Gender: F Egg Packer: : 1990 Requested By: Cruz Muñoz Order Number: [id number] Reading MD: Seymour Jerry Measurements Intervals [place] Rate: 107 P: 62 WI: 146 QRS: 96 QRSD: 91 T: -41 QT: 307 QTc: 410 Interpretive Statements Sinus tachycardia Electronically Signed On 03-04-2019 12:02:14 EDT by Seymour Jerry
== END 2019-03-02 08:00 | disposition home or self-care (01) | DRG 513 ==
LOC: 1NENUOBS 14:11 → EMEROOARM 14:11 → 1NENUOBS 19:40
PROVIDERS: ADMIT Obstetrics & Gynecology; ATTEND Obstetrics & Gynecology